=== PATIENT | male | born 1960 | race Caucasian/White ===

== ENCOUNTER 2018-08-29 08:08 | Inpatient (IN) | payer MEDICAID ==
[~2018-08-29] VITALS: Ht 162.6 cm; Wt 80.3 kg
[2018-08-29] MEDS ORDERED: FUROSEMIDE 40MG/4ML VIAL IV ONE (12:30)
[2018-08-29] MEDS ORDERED: METHYLPREDNISOLONE SOD SUCC 125 MG/2 ML VIAL IV STA (12:30)
[2018-08-29] MEDS ORDERED: IPRATROPIUM/ALBUTEROL 0.5-3(2.5)MG/3ML NEB HHN ONE (12:30)
[2018-08-29] MEDS ORDERED: IPRATROPIUM/ALBUTEROL 0.5-3(2.5)MG/3ML NEB ONE (13:00)
[2018-08-29 13:06] LABS: HEMATOCRIT. 44.8 % (42.0-52.0); HEMOGLOBIN. 14.6 g/dL (14.0-18.0); MEAN CORPUSCULAR HEMOGLOBIN 28.5 pg (28.0-32.0); MEAN CORPUSCULAR VOLUME 87.3 fL (80.0-94.0); MEAN PLATELET VOLUME 8.7 fl (7.4-10.4); PLATELET 125 x1000/uL (130-400); RED BLOOD CELL COUNT 5.13 mill/uL (4.7-6.1); RED CELL DISTRIBUTION WIDTH 16.1 % (11.6-14.6)
[2018-08-29 13:09] LABS: CHLORIDE 100 mEq/L (98-107)
[2018-08-29 13:16] LABS: ETHANOL BLOOD < 10 mg/dL
[2018-08-29 13:21] LABS: INR 1.1; PARTIAL THROMBOPLASTIN TIME 33.6 sec (23.4-31.0); PROTHROMBIN TIME 11.1 sec (9.1-11.1)
[2018-08-29 13:24] LABS: PLATELET ESTIMATE SLIGHTLY DECREASED
[2018-08-29 14:08] LABS: CLARITY URINE CLEAR (CLEAR); COLOR URINE YELLOW (YELLOW); KETONES URINE NEGATIVE (NEGATIVE); LEUKOCYTE ESTERASE URINE NEGATIVE (NEGATIVE); NITRITE URINE NEGATIVE (NEGATIVE); OCCULT BLOOD URINE NEGATIVE (NEGATIVE); PROTEIN URINE NEGATIVE (NEGATIVE); SPECIFIC GRAVITY URINE 1.012 (1.005-1.030); UROBILINOGEN URINE 0.2 E.U./dL (0.2-1.0)
[2018-08-29 14:41] LABS: *AMPHETAMINES SCREEN URINE NEGATIVE (NEGATIVE); *BARBITURATES SCREEN URINE NEGATIVE (NEGATIVE); *BENZODIAZEPINES SCREEN URINE NEGATIVE (NEGATIVE); *COCAINE SCREEN URINE NEGATIVE (NEGATIVE)
[2018-08-29 14:42] LABS: CANNABINOID URINE SCREEN PRESUMTIVE POSITIVE (NEGATIVE); METHADONE URINE SCREEN NEGATIVE (NEGATIVE); OPIATES URINE SCREEN PRESUMTIVE POSITIVE (NEGATIVE); PHENCYCLIDINE URINE SCREEN NEGATIVE (NEGATIVE)
[2018-08-29] MEDS ORDERED: VANCOMYCIN 1 G PREMIX 200 ML IV SCH (14:45)
[2018-08-29] MEDS ORDERED: PIPERACILLIN/TAZOBACTAM 3.375GM/50ML PREMIX IV NR (15:19)
[2018-08-29] MEDS ORDERED: GUAIFENESIN 200MG/10ML SUGAR FREE UDC PO PRN (19:15)
[2018-08-29] MEDS ORDERED: MAGNESIUM/ALUMINUM HYDROXIDE/SIMETHICONE 30ML UDC PO PRN (19:15)
[2018-08-29] MEDS ORDERED: DIPHENHYDRAMINE 50MG/ML VIAL IV PRN (19:15)
[2018-08-29] MEDS ORDERED: ONDANSETRON HCL 4MG/2ML INJ IV PRN (19:15)
[2018-08-29] MEDS ORDERED: MAGNESIUM HYDROXIDE 400MG/5ML 30ML UDC PO PRN (19:15)
[2018-08-29] MEDS ORDERED: CLONIDINE 0.1MG TABLET PO PRN (19:15)
[2018-08-29] MEDS ORDERED: ACETAMINOPHEN 325MG TABLET PO PRN (19:15)
[2018-08-29] MEDS ORDERED: IPRATROPIUM/ALBUTEROL 0.5-3(2.5)MG/3ML NEB INH PRN (19:15)
[2018-08-29] MEDS ORDERED: AZITHROMYCIN 500 MG in DEXT 5% WATER 250 ML IV SCH (19:30)
[2018-08-29 22:00] VITALS: BP 116/63
[2018-08-29 22:45] VITALS: BP 116/63
[2018-08-29] MEDS: ATORVASTATIN CALCIUM 20MG TABLET PO SCH (22:52)
[2018-08-29] MEDS: TEMAZEPAM 15MG CAPSULE PO PRN (22:54)
[2018-08-30] MEDS: AZITHROMYCIN 500 MG in DEXT 5% WATER 250 ML IV SCH (00:03)
[2018-08-30] MEDS: METHYLPREDNISOLONE SOD SUCC 125 MG/2 ML VIAL IV SCH ×3 (00:04→13:28)
[2018-08-30] MEDS: IPRATROPIUM/ALBUTEROL 0.5-3(2.5)MG/3ML NEB HHN SCH ×6 (00:16→20:00)
[2018-08-30] MEDS ORDERED: FURO-151 PO (00:51)
[2018-08-30] MEDS ORDERED: COR25 PO (00:51)
[2018-08-30] MEDS ORDERED: KDUR10 PO (00:51)
[2018-08-30] MEDS ORDERED: ATOR20TA65 PO (00:51)
[2018-08-30] MEDS ORDERED: ASPI-1159 PO (00:51)
[2018-08-30 04:00] VITALS: BP 93/51
[2018-08-30] MEDS: SODIUM CHLORIDE 0.9% INJ 3ML FLUSH IVF SCH ×3 (06:40→21:23)
[2018-08-30 08:00] VITALS: BP 111/60
[2018-08-30] MEDS: BUDESONIDE 0.5MG/2ML NEB HHN SCH ×2 (08:00→20:00)
[2018-08-30] MEDS: FUROSEMIDE 40MG/4ML VIAL IVP SCH (08:14)
[2018-08-30] MEDS: POTASSIUM CHLORIDE 20MEQ TABLET SR PO SCH (08:14)
[2018-08-30] MEDS: OMEPRAZOLE 20MG CAPSULE EXTENDED RELEASE PO SCH ×2 (08:15→21:23)
[2018-08-30] MEDS: CARVEDILOL 25MG TABLET PO SCH ×2 (08:15→21:00)
[2018-08-30 12:00] VITALS: BP 110/71
[2018-08-30 16:00] VITALS: BP_SYST 103; BP_SYST 128; BP_SYST 166; BP_DIAS 65; BP_DIAS 72; BP_DIAS 97
[2018-08-30 20:00] VITALS: BP 99/49
[2018-08-30] MEDS: TEMAZEPAM 15MG CAPSULE PO PRN (21:23)
[2018-08-30] MEDS: ATORVASTATIN CALCIUM 20MG TABLET PO SCH (21:23)
[2018-08-30] MEDS: METHYLPREDNISOLONE SOD SUCC 40 MG/ML VIAL IV SCH (21:24)
[2018-08-31] VITALS: BP 121/61
[2018-08-31] MEDS: AZITHROMYCIN 500 MG in DEXT 5% WATER 250 ML IV SCH (00:11)
[2018-08-31 04:00] VITALS: BP 119/78
[2018-08-31] MEDS: IPRATROPIUM/ALBUTEROL 0.5-3(2.5)MG/3ML NEB HHN SCH ×6 (04:12→21:11)
[2018-08-31] MEDS: METHYLPREDNISOLONE SOD SUCC 40 MG/ML VIAL IV SCH ×2 (06:28→13:01)
[2018-08-31] MEDS: SODIUM CHLORIDE 0.9% INJ 3ML FLUSH IVF SCH ×3 (06:28→20:46)
[2018-08-31 08:04] VITALS: BP 142/80
[2018-08-31] MEDS: FUROSEMIDE 40MG/4ML VIAL IVP SCH (08:06)
[2018-08-31] MEDS: POTASSIUM CHLORIDE 20MEQ TABLET SR PO SCH (08:07)
[2018-08-31] MEDS: CARVEDILOL 25MG TABLET PO SCH ×2 (08:07→20:42)
[2018-08-31] MEDS: OMEPRAZOLE 20MG CAPSULE EXTENDED RELEASE PO SCH ×2 (08:07→20:42)
[2018-08-31] MEDS: BUDESONIDE 0.5MG/2ML NEB HHN SCH ×2 (08:16→21:08)
[2018-08-31] MEDS: LISINOPRIL 5MG TABLET PO SCH (10:21)
[2018-08-31 12:00] VITALS: BP 129/78
[2018-08-31 16:00] VITALS: BP 116/63
[2018-08-31 20:00] VITALS: BP 110/48
[2018-08-31] MEDS: ATORVASTATIN CALCIUM 20MG TABLET PO SCH (20:42)
[2018-09-01] VITALS (7 sets, daily range): BP systolic 116–127; BP diastolic 67–86
[2018-09-01] MEDS: AZITHROMYCIN 500 MG in DEXT 5% WATER 250 ML IV SCH (00:18)
[2018-09-01] MEDS: IPRATROPIUM/ALBUTEROL 0.5-3(2.5)MG/3ML NEB HHN SCH ×5 (04:00→15:59)
[2018-09-01] MEDS: SODIUM CHLORIDE 0.9% INJ 3ML FLUSH IVF SCH ×2 (05:43→20:00)
[2018-09-01 07:32] LABS: BASOPHILS % 0.1 % (0.0-2.0); HEMATOCRIT. 42.6 % (42.0-52.0); HEMOGLOBIN. 14.2 g/dL (14.0-18.0); LYMPHOCYTES % 7.3 % (20.0-50.0); MEAN CORPUSCULAR HEMOGLOBIN 29.3 pg (28.0-32.0); MEAN CORPUSCULAR VOLUME 87.9 fL (80.0-94.0); MEAN PLATELET VOLUME 8.9 fl (7.4-10.4); MONOCYTES % 4.8 % (2.0-8.0); NEUTROPHILS % 87.8 % (40.0-76.0); PLATELET 168 x1000/uL (130-400); RED BLOOD CELL COUNT 4.85 mill/uL (4.7-6.1); RED CELL DISTRIBUTION WIDTH 16.1 % (11.6-14.6)
[2018-09-01 08:16] LABS: CHLORIDE 106 mEq/L (98-107)
[2018-09-01] MEDS: POTASSIUM CHLORIDE 20MEQ TABLET SR PO SCH (08:19)
[2018-09-01] MEDS: CARVEDILOL 25MG TABLET PO SCH ×2 (08:21→21:00)
[2018-09-01] MEDS: LISINOPRIL 5MG TABLET PO SCH (08:21)
[2018-09-01] MEDS: OMEPRAZOLE 20MG CAPSULE EXTENDED RELEASE PO SCH ×2 (08:21→21:00)
[2018-09-01] MEDS: FUROSEMIDE 40MG/4ML VIAL IVP SCH (08:21)
[2018-09-01] MEDS: BUDESONIDE 0.5MG/2ML NEB HHN SCH ×2 (09:29→19:59)
[2018-09-01] MEDS ORDERED: GUAI-453 MT (17:37)
[2018-09-01] MEDS ORDERED: BUDE6HFA INH (18:02)
[2018-09-01] MEDS ORDERED: PRED10TA PO (18:03)
[2018-09-01] MEDS ORDERED: ALBU90AE INH (18:05)
[2018-09-01] MEDS: ATORVASTATIN CALCIUM 20MG TABLET PO SCH (21:00)
== END 2018-09-01 21:15 | disposition home or self-care (01) | DRG 194 ==
LOC: ER 08:08 → 7WST 14:52 → EDBEDREQ 14:54 → EDBEDREQTM 14:54 → ENRESERV 20:49
PROVIDERS: ADMIT Internal Medicine; ATTEND Internal Medicine
DX: I11.0 Hypertensive heart disease with heart failure (principal); J96.00 Acute respiratory failure, unspecified whether with hypoxia or hypercapnia; J44.0 Chronic obstructive pulmonary disease with (acute) lower respiratory infection; D72.825 Bandemia; E78.00 Pure hypercholesterolemia, unspecified; D48.1 Neoplasm of uncertain behavior of connective and other soft tissue; I50.43 Acute on chronic combined systolic (congestive) and diastolic (congestive) heart failure; F17.210 Nicotine dependence, cigarettes, uncomplicated; F12.10 Cannabis abuse, uncomplicated; F11.10 Opioid abuse, uncomplicated; E78.5 Hyperlipidemia, unspecified; J20.9 Acute bronchitis, unspecified; J44.1 Chronic obstructive pulmonary disease with (acute) exacerbation; I25.10 Atherosclerotic heart disease of native coronary artery without angina pectoris; I25.2 Old myocardial infarction; Z82.49 Family history of ischemic heart disease and other diseases of the circulatory system; Z83.3 Family history of diabetes mellitus; Z71.51 Drug abuse counseling and surveillance of drug abuser
CPT/HCPCS: 36415; 71045; 80048; 80305; 80320; 83605; 83735; 83880; 84484; 87070; 93005; 93306; 93970; 94640; 96365; 96375; 99285; J0456; J1940; J2543; J2920; J2930; J3370; J7040; J7060; J7620; J7626; G0480